=== PATIENT | female | born 1985 | race Hispanic/Latino ===

== ENCOUNTER 2016-12-22 14:51 | Emergency (ER) | payer OTHER ==
[~2016-12-22] VITALS: Ht 157.5 cm; Wt 77.1 kg
[~2016-12-22 14:51] MED LIST: AMOXICILLIN500 M1 PO; AUGMENTIN 875 M1 TAB PO; BENTYL10 MG PO; CIPRO 500MG TA500 MG PO; FIORICET 50-301 EACH PO; FLONASE120 SPRAY/ NASB; IBU800 MG PO; IMITREX50 M1 PO; JUNEL FE 1/20 21 TAB PO; MOBIC15 M1 PO; MULTIVITAMIN1 TAB PO; PANTOPRAZOLE SO40 M1 PO; PERCOCET 325 MG1 TA2 PO; PREDNISONE10 MG PO; PRILOSEC OTC20 MG PO; REGLAN10 MG PO; TORADOL10 MG PO; TRAMADOL50 MG PO; ZOFRAN 4 MG TABL4 MG PO; ZOFRAN ODT4 MG SL; [UNRECOGNIZED DRUG - OTHER] PO
--- NOTE | 2016-12-22 16:57 | ED GI/GU/ABDOMINAL COMPLAINT ---
History of Present Illness General Chief Complaint: Abdominal Pain/Flank Pain Stated Complaint: LOW BACK PAIN Source: patient, family, old records Exam Limitations: no limitations Vital Signs & Intake/Output Vital Signs & Intake/Output Vital Signs Date Time Temp Pulse Resp B/P Pulse O2 O2 Flow FiO2 Ox Delivery Rate 12/22 2108 98.4 81 16 112/71 99 Room Air 12/22 1827 98.4 73 16 118/72 100 Room Air 12/22 1622 Room Air 12/22 1504 98.4 103 18 134/84 99 Room Air Allergies Coded Allergies: shellfish derived (Severe, ANAPHYLAXIS 10/27/16) SEAFOOD- DIFFICULTY BREATHING diphenhydramine (Intermediate, DIFFICULTY BREATHING 10/27/16) doxycycline (HIVES 10/27/16) Uncoded Allergies: ANIMAL HAIR/DANDER (ASTHMA 11/09/14) DUST (ASTHMA 11/09/14) ROACHES (ASTHMA 11/09/14) Reconcile Medications Diltiazem HCl (Diltiazem 24HR ER) (Unknown Strength) CAP.ER.24H (Unknown Dose) UNKNOWN (Reported) Escitalopram Oxalate (Unknown Strength) TABLET (Unknown Dose) UNKNOWN ( Reported) Norethindrone-E.estradiol-Iron (Junel Fe 1 MG-20 Mcg Tablet) (Unknown Strength) TABLET (Unknown Dose) UNKNOWN (Reported) Pantoprazole Sodium (Unknown Strength) TABLET.DR (Unknown Dose) PO DAILY UNKNOWN (Reported) Sumatriptan Succinate 100 MG TABLET 1 TAB PO AD PRN MIGRAINES (Reported) may repeat in 2 hours; do not exceed 200 mg in 24 hours Triage Note: C/O LOW BACK PAIN RADIATING TO LOWER ABDOMEN AND GROIN X 2 WEEKS. + HOME TEST YESTERDAY. LMP: 11/04. Triage Nurses Notes Reviewed? yes LMP (ages 10-50): date ([id number]) ? y Is pt currently ? No Onset: Last week Duration: week(s):, constant, continues in ED, getting worse Timing: recent history Quality/Severity: aching, moderate Location: periumbilical Radiation: back Activities at Onset: none Prior Abdominal Problems: none Past Sexual History: Unobtainable at this time Modifying Factors: Worsens With: palpation. Associated Symptoms: abdominal pain, diarrhea HPI: 1 week prior to admission patient complains of periumbilical pain radiating to the low back crampy moderate in severity worse with palpation constant. She also reports having frequent loose watery stools 3-4 days prior to admission but decreased appetite. The last menses Was 11/04/2016 with four positive urine tests at home. She is fever chills nausea vomiting chest pain cough shortness of breath headache dysuria rash bleeding. (PANCHITO ORELLANA MD) Past History Travel History Traveled to [place] past 21 day No Medical History Any Pertinent Medical History? see below for history Neurological: migraine EENT: NONE Cardiovascular: CARDIAC ABLATION 07/31 Respiratory: asthma Gastrointestinal: NONE Hepatic: NONE Renal: NONE Musculoskeletal: NONE Psychiatric: NONE Endocrine: NONE Blood Disorders: anemia Cancer(s): NONE DIRECTOR CPG/Reproductive: NONE History of CDIFF: No Surgical History Surgical History: N Psychosocial History What is your primary language Martiniquais Tobacco Use: Never used ETOH Use: denies use Family History Hx Contributory? No (PANCHITO ORELLANA MD) Review of Systems Review of Systems Constitutional: Reports: no symptoms. EENTM: Reports: no symptoms. Respiratory: Reports: no symptoms. Cardiovascular: Reports: no symptoms. GI: Reports: see HPI, abdominal pain, diarrhea. Genitourinary: Reports: no symptoms. Musculoskeletal: Reports: no symptoms. Skin: Reports: no symptoms. Neurological/Psychological: Reports: no symptoms. Hematologic/Endocrine: Reports: no symptoms. Immunologic/Allergic: Reports: no symptoms. All Other Systems: Reviewed and Negative (PANCHITO ORELLANA MD) Physical Exam Physical Exam General Appearance: well developed/nourished, alert, awake, anxious, mild distress, obese Head: atraumatic, normal appearance Eyes: Bilateral: normal appearance, PERRL, EOMI, normal inspection. Ears, Nose, Throat, Mouth: hearing grossly normal, moist mucous membrane Neck: normal inspection, supple, full range of motion, normal alignment Respiratory: normal breath sounds, chest non-tender, no respiratory distress, quiet respiration, lungs clear Cardiovascular: regular rate/rhythm, normal peripheral pulses, norml femoral pulses equa Peripheral Pulses: 4+ carotid (R), 4+ carotid (L) Gastrointestinal: normal bowel sounds, soft, tenderness (mild periumbilical) Back: normal inspection, normal range of motion Extremities: normal range of motion, no ligament instability Neurologic/Psych: no motor/sensory deficits, awake, alert, oriented x 3, normal gait, normal mood/affect, donor floor technician II-XII nml as tested Skin: intact, normal color, warm/dry Core Measures ACS in differential dx? No Severe Sepsis Present: No Septic Shock Present: No (PANCHITO ORELLANA MD) Progress Differential Diagnosis: ectopic , intrauterine , ovarian cyst Plan of Care: Orders Procedure Date/time Status LIPASE 12/22 1743 Complete HUMAN BETA HCG TITRE 12/22 1743 Complete COMPREHENSIVE METABOLIC PANEL 12/22 1743 Complete CBC WITHOUT DIFFERENTIAL 12/22 1743 Complete URINE 12/22 160 Complete URINALYSIS 12/22 160 Complete Laboratory Tests 12/22/16 1819: Anion Gap 10, Estimated GFR > 60, BUN/Creatinine Ratio 16.7, Glucose 76, Calcium 9.2, Total Bilirubin 0.5, AST 47 H, ALT 78 H, Alkaline Phosphatase 77, Total Protein 7.4, Albumin 4.2, Globulin 3.2, Albumin/Globulin Ratio 1.3, Lipase 110, Beta HCG, Quant 21.5, CBC w Diff NO MAN DIFF REQ, RBC 4.25, MCV 89.4, MCH 30.0, RDW 12.8, MPV 8.5, Gran % 67.2, Lymphocytes % 26.5, Monocytes % 3.8, Eosinophils % 1.6, Basophils % 0.9, Absolute Granulocytes 5.9, Absolute Lymphocytes 2.3, Absolute Monocytes 0.3, Absolute Eosinophils 0.1, Absolute Basophils 0.1, PUBS MCHC 33.5 12/22/16 1618: Urine Color YEL, Urine Clarity CLEAR, Urine pH 6.0, Ur Specific [place] 1.020, Urine Protein NEG, Urine Ketones NEG, Urine Nitrite NEG, Urine Bilirubin NEG, Urine Urobilinogen 0.2, Ur Leukocyte Esterase NEG, Ur Microscopic EXAM NOT REQUIRED, Urine Hemoglobin NEG, Urine Glucose NEG, Urine Test NEGATIVE Diagnostic Imaging: Viewed by Me: Ultrasound. Initial ED EKG: none Hand-Off Endorsed To: PHILIP WHYTE MD Endorsed Time: 1920 Pending: ultrasound Comments: Feels better after tylenol (PANCHITO ORELLANA MD) Departure Departure Condition: Stable Clinical Impression Primary Impression: Abdominal pain Qualifiers: Abdominal location: periumbilical Qualified Code: R10.33 - Periumbilical pain Secondary Impressions: Diarrhea Qualifiers: Diarrhea type: unspecified type Qualified Code: R19.7 - Diarrhea, unspecified Qualifiers: Weeks of gestation: less than 8 weeks Qualified Code: Z3A.01 - Less than 8 weeks gestation of Referrals: SIENA CROOKS APRN (PCP/Family) Departure Forms: Customer Survey General Discharge Information (REYNA WHITE,PANCHITO) Departure Disposition: HOME OR SELF CARE Additional Instructions: FOLLOW UP WITH YOUR GYNOCOLOGIST IN 2 DAYS. YOUR HCG WAS 21.4 HAVE REPEAT LABS IN 2 DAYS RETURN FOR ANY CONCERNS (PATO WHITE,PHILIP Bo)
[2016-12-22] MEDS ORDERED: PANTOPRAZOLE SO40 M1 PO (18:09)
[2016-12-22] MEDS ORDERED: SUMATRIPTAN SU100 M1 PO (18:10)
[2016-12-22] MEDS ORDERED: ESCITALOPRAM OX10 MG (18:11)
[2016-12-22] MEDS ORDERED: JUNEL FE 1 MG-1 EACH (18:14)
[2016-12-22] MEDS ORDERED: DILTIAZEM 24HR180 MG (18:15)
[2016-12-22 18:36] LABS: ABSOLUTE BASOPHIL COUNT 0.1 /CUMM (0.0-0.2); ABSOLUTE EOSINOPHIL COUNT 0.1 /CUMM (0.0-0.7); ABSOLUTE GRANULOCYTE CT 5.9 /CUMM (1.4-6.5); ABSOLUTE LYMPH COUNT 2.3 /CUMM (1.2-3.4); ABSOLUTE MONOCYTE COUNT 0.3 /CUMM (0.10-0.60); BASOPHIL % 0.9 % (0.0-2.0); EOSINOPHIL % 1.6 % (0-5); GRANULOCYTE % 67.2 % (42.2-75.2); MEAN CORPUSCULAR HGB CONC 33.5 G/DL (33.0-37.0); MEAN CORPUSCULAR VOLUME 89.4 FL (81.0-99.0); MEAN PLATELET VOLUME 8.5 FL (7.4-10.4); PLATELET COUNT 221 /CUMM (130-400); RBC DISTRIBUTION WIDTH 12.8 % (11.5-14.5); RED BLOOD CELL CT 4.25 /CUMM (4.20-5.40); WHITE BLOOD CELL COUNT 8.9 /CUMM (4.8-10.8)
[2016-12-22 21:08] VITALS: BP 112/71
--- NOTE | 2016-12-22 22:00 | ULTRASOUND REPORT ---
EXAMINATION: ULTRASOUND PELVIC, COMPLETE CLINICAL INFORMATION: Back pain. COMPARISON: None. TECHNIQUE: Transvaginal: Used to better visualize pelvic structures Transabdominal: Not adequate for visualization. Spectral Doppler and color Doppler exam was utilized. LMP: 11/04/2016. Gestational age 6 weeks 6 days. GAEL 08/11/2017 FINDINGS: UTERUS: No intrauterine gestational sac. No focal fluid collection. ADNEXA: Ovarian vascularity:Doppler demonstrates both arterial and venous vascular flow in the right and left ovary. No evidence of ovarian torsion. Right Ovary: 2.5 x 1.5 x 2.4 cm. Largest follicle measuring 0.6 cm Left Ovary: 3.5 x 2.6 x 2.7 cm. Largest follicle measuring 0.8 cm Cul-de-sac: Trace fluid IMPRESSION: Normal ultrasound of pelvis. No intrauterine seen. An ectopic can therefore not be excluded but there is no adnexal abnormality. Trace fluid in the cul-de-sac. Correlate with serum beta-hCG levels. This critical result was discussed with Dr Chinchilla on 12/22/2016, 10:00 PM and it was ascertained that the content and urgency of the report was understood at the time of direct communication.
== END 2016-12-22 22:08 ==
LOC: ERH 14:51
PROVIDERS: Emergency Medicine
DX: O26.91 Pregnancy related conditions, unspecified, first trimester (principal); R19.7 Diarrhea, unspecified; R10.33 Periumbilical pain; Z3A.08 8 weeks gestation of pregnancy
CPT/HCPCS: 76817; 81003; 81025; 96374; J0131